=== PATIENT | female | born 1960 | race Hispanic/Latino ===

== ENCOUNTER 2021-05-28 11:57 | Outpatient (CLI) | payer OTHER | END 2021-05-28 11:58 | disposition home or self-care (01) | LOC: CSHLAB 11:57 | PROVIDERS: ATTEND Obstetrics & Gynecology | DX: Z01.818 Encounter for other preprocedural examination (principal); N81.2 Incomplete uterovaginal prolapse | CPT/HCPCS: 80048; 85027; 86850; 86900; 86901; 93005; 93010; U0003; U0005 ==

== ENCOUNTER 2021-06-02 05:23 | Inpatient (IN) | payer OTHER ==
[2021-05-28 14:38] LABS: Hemoglobin 11.4 g/dL (12.0-15.5); Mean Corpuscular HGB CONC 33.2 g/dL (32.0-36.0); Mean Corpuscular Hemoglobin 30.1 pg (27.0-33.0); Mean Corpuscular Volume 90.5 fl (81.6-98.3); Mean Platelet Volume 10.4 fl (7.4-10.4); Platelet Count 338 10x3/uL (150-450); RBC Distribution Width 13.3 % (11.5-14.5); Red Blood Cell (RBC) Count 3.79 10x6/uL (3.90-5.03); White Blood Cell (WBC) Count 7.3 10x3/uL (3.5-10.5)
[2021-05-28 14:44] LABS: Anion Gap 15 mmol/L (10-20); BUN (Urea Nitrogen) 28 mg/dL (9.8-20.1); Calc. Creatinine Clearance 0 mL/min (70-130); Calcium 9.8 mg/dL (7.8-10.44); Carbon Dioxide 23 mmol/L (23-31); Chloride 107 mmol/L (98-107); Glucose 72 mg/dL (80-115); Potassium 4.1 mmol/L (3.5-5.1); Sodium 141 mmol/L (136-145)
[2021-05-29 00:07] LABS: SARS-CoV-2 PCR by NAA Not Detected (NotDetected)
[2021-05-31 12:13] VITALS: BMI 29.2
[2021-06-02] MEDS ORDERED: Rocuronium Bromide 10 MG/ML (10ML VIAL) ONE (06:14)
[2021-06-02] MEDS ORDERED: Dexamethasone 20 MG/5 ML VIAL ONE (06:14)
[2021-06-02] MEDS ORDERED: PROPOFOL 20 ML ONE (06:14)
[2021-06-02] MEDS ORDERED: Midazolam HCl 2 mg/2 ml Vial ONE ×2 (06:14→07:28)
[2021-06-02] MEDS ORDERED: Ondansetron PF 4 MG/2 ML Vial ONE (06:14)
[2021-06-02] MEDS ORDERED: Lidocaine 1% PF 5 ML VIAL ONE (06:14)
[2021-06-02] MEDS ORDERED: Fentanyl 250 MCG/5 ML VIAL ONE (06:14)
[2021-06-02] MEDS ORDERED: Glycopyrrolate 0.2 MG/ML 5 ML SYRINGE ONE (06:15)
[2021-06-02] MEDS ORDERED: Ketorolac Tromethamine 30 MG/ML VIAL ONE (06:15)
[2021-06-02] MEDS ORDERED: CeleCOXIB 100 MG CAP ONE (06:23)
[2021-06-02] MEDS ORDERED: Gabapentin 300 MG CAP ONE (06:23)
[2021-06-02] MEDS ORDERED: Famotidine/PF 20 mg/2ml Vial ONE (06:23)
[2021-06-02] MEDS ORDERED: Lidocaine 1% MPF 2 ML VIAL ONE (06:24)
[2021-06-02] MEDS ORDERED: EPINEPHrine 1 MG/ML AMP ONE (06:44)
[2021-06-02] MEDS ORDERED: Bupivacaine PF 0.5% 30 ML VIAL ONE (06:45)
[2021-06-02] MEDS ORDERED: ePHEDrine Sulfate 50 MG/10 ML VIAL ONE (08:00)
[2021-06-02] MEDS ORDERED: Lidocaine 1% w/Epinephrine 1:100K 20 ML VIAL ONE (08:35)
[2021-06-02] MEDS ORDERED: Promethazine HCl 25 MG/ML VIAL IM PRN (11:38)
[2021-06-02] MEDS ORDERED: Morphine 4 MG/ML VIAL SLOW IVP PRN ×3 (11:38→12:45)
[2021-06-02] MEDS ORDERED: diphenhydrAMINE 25 MG CAP PO PRN (11:38)
[2021-06-02] MEDS ORDERED: Zolpidem Tartrate 5 MG TAB PO PRN (11:38)
[2021-06-02] MEDS ORDERED: Dextrose 5% in Water 1,000 ML IV PRN (11:38)
[2021-06-02] MEDS ORDERED: Dextrose 50% Abboject 50 ML SYRINGE SLOW IVP PRN (11:38)
[2021-06-02] MEDS ORDERED: Ondansetron PF 4 MG/2 ML Vial IVP PRN (11:38)
[2021-06-02] MEDS ORDERED: traMADol HCl 50 MG TAB PO PRN ×2 (11:38)
[2021-06-02] MEDS ORDERED: Bisacodyl 10 MG SUPP PR PRN (11:38)
[2021-06-02] MEDS: Sodium Chloride 0.9% 1,000 ML IV SCH ×2 (12:10→21:00)
[2021-06-02] MEDS: Insulin Regular 300 UNITS/3 ML VIAL SC PRN ×2 (12:40→16:30)
[2021-06-02] MEDS: Simethicone Chewable 80 MG TAB PO PRN (16:01)
[2021-06-02] MEDS: Lantus 1000 UNITS/10 ML VIAL SC SCH ×2 (16:26→16:27)
[2021-06-02] MEDS: LEVEMIR SC SCH (21:03)
[2021-06-02] MEDS: Docusate 100 MG CAP PO SCH (21:03)
[2021-06-02] MEDS: metFORMIN 500 MG TAB PO SCH (21:03)
[2021-06-02] MEDS ORDERED: HumaLOG 300 UNITS/3 ML VIAL SC SCH (21:45)
[2021-06-03 04:43] LABS: Hemoglobin 9.2 g/dL (12.0-15.5); Mean Corpuscular HGB CONC 33.8 g/dL (32.0-36.0); Mean Corpuscular Hemoglobin 30.8 pg (27.0-33.0); Platelet Count 262 10x3/uL (150-450); RBC Distribution Width 13.4 % (11.5-14.5); Red Blood Cell (RBC) Count 2.99 10x6/uL (3.90-5.03); White Blood Cell (WBC) Count 12.8 10x3/uL (3.5-10.5)
[2021-06-03] MEDS: Simethicone Chewable 80 MG TAB PO PRN ×2 (06:43→09:35)
[2021-06-03 08:00] VITALS: BP 133/63; TEMP 99.1
[2021-06-03] MEDS: Sodium Chloride 0.9% 1,000 ML IV SCH ×2 (08:14→10:30)
[2021-06-03] MEDS ORDERED: HumaLOG 300 UNITS/3 ML VIAL SC SCH (09:00)
[2021-06-03] MEDS ORDERED: Lisinopril 20 MG TAB PO SCH (09:00)
[2021-06-03] MEDS: Docusate 100 MG CAP PO SCH (09:35)
[2021-06-03] MEDS: metFORMIN 500 MG TAB PO SCH (09:35)
[2021-06-03] MEDS: LEVEMIR SC SCH (09:35)
== END 2021-06-03 11:04 | disposition home or self-care (01) | DRG 743 ==
LOC: CSHSDC 05:23 → CSHPED 11:30
PROVIDERS: ADMIT Obstetrics & Gynecology; ATTEND Obstetrics & Gynecology
PROC: 0UT9FZZ Resection of Uterus, Via Natural or Artificial Opening With Percutaneous Endoscopic Assistance (ICD-10-PCS; principal; 2021-06-02)
PROC: 0UT7FZZ Resection of Bilateral Fallopian Tubes, Via Natural or Artificial Opening With Percutaneous Endoscopic Assistance (ICD-10-PCS; 2021-06-02)
PROC: 0UT2FZZ Resection of Bilateral Ovaries, Via Natural or Artificial Opening With Percutaneous Endoscopic Assistance (ICD-10-PCS; 2021-06-02)
PROC: 0USG4ZZ Reposition Vagina, Percutaneous Endoscopic Approach (ICD-10-PCS; 2021-06-02)
PROC: 8E0W4CZ Robotic Assisted Procedure of Trunk Region, Percutaneous Endoscopic Approach (ICD-10-PCS; 2021-06-02)
PROC: 0JQC3ZZ Repair Pelvic Region Subcutaneous Tissue and Fascia, Percutaneous Approach (ICD-10-PCS; 2021-06-02)
DX: N81.2 Incomplete uterovaginal prolapse (principal); Z20.822 Contact with and (suspected) exposure to COVID-19; I10 Essential (primary) hypertension; E78.5 Hyperlipidemia, unspecified; E11.9 Type 2 diabetes mellitus without complications; Z79.4 Long term (current) use of insulin; Z79.899 Other long term (current) drug therapy
CPT/HCPCS: 36416; 80048; 85027; 86850; 86900; 86901; 88307; 88311; J0171; J0690; J1100; J1815; J1885; J2250; J2270; J2405; J2704; J3010; J7050; S0020; S0028; U0003; U0005

== ENCOUNTER 2021-06-24 16:40 | Emergency (ER) | payer OTHER ==
[2021-06-24 17:41] LABS: #Basophils 0.1 10x3/uL (0.0-0.2); #Eosinphils 0.3 10x3/uL (0.0-0.5); #Monocytes 0.7 10x3/uL (0.0-1.1); #Neutrophils 6.5 10x3/uL (1.5-8.4); %Eosinophils 2.6 % (0.0-6.0); %Lymphocytes 25.3 % (18.0-47.0); %Monocytes 6.8 % (0.0-10.0); %Neutrophils 63.8 % (40.0-75.0); Hemoglobin 10.8 g/dL (12.0-15.5); Mean Corpuscular HGB CONC 34.2 g/dL (32.0-36.0); Mean Corpuscular Hemoglobin 30.7 pg (27.0-33.0); Mean Corpuscular Volume 89.8 fl (81.6-98.3); Mean Platelet Volume 9.8 fl (7.4-10.4); Platelet Count 395 10x3/uL (150-450); Red Blood Cell (RBC) Count 3.52 10x6/uL (3.90-5.03); White Blood Cell (WBC) Count 10.2 10x3/uL (3.5-10.5)
[2021-06-24 17:42] LABS: Anion Gap 16 mmol/L (10-20); BUN (Urea Nitrogen) 21 mg/dL (9.8-20.1); Calc. Creatinine Clearance 0 mL/min (70-130); Calcium 10.1 mg/dL (7.8-10.44); Carbon Dioxide 21 mmol/L (23-31); Chloride 110 mmol/L (98-107); Glucose 97 mg/dL (80-115); Potassium 3.5 mmol/L (3.5-5.1); Sodium 143 mmol/L (136-145)
== END 2021-06-24 20:14 | disposition home or self-care (01) ==
LOC: CSHERS 16:40
DX: N89.8 Other specified noninflammatory disorders of vagina (principal); G89.18 Other acute postprocedural pain; E11.9 Type 2 diabetes mellitus without complications; E78.5 Hyperlipidemia, unspecified; E78.00 Pure hypercholesterolemia, unspecified
CPT/HCPCS: 36416; 80048; 85025; 87070; 87205; 99283